=== PATIENT | female | born 1935 | race Caucasian/White ===

== ENCOUNTER 2017-01-02 12:14 | Inpatient (IN) | payer MEDICARE, BC ==
[~2017-01-02] VITALS: Ht 157.5 cm; Wt 97.8 kg
[2017-01-24] MEDS ORDERED: ROSU1TAB8 PO (09:01)
[2017-01-24] MEDS ORDERED: CHOL1CAP34 PO (09:01)
[2017-01-24] MEDS ORDERED: HYDR-3516 PO (09:01)
[2017-01-24] MEDS ORDERED: MULT1TAB46 PO (09:01)
[2017-01-24] MEDS ORDERED: ATEN25TA PO (09:01)
[2017-01-24] MEDS ORDERED: FURO20TA PO (09:01)
[2017-01-24] MEDS ORDERED: ASPI-110 PO (09:01)
[2017-01-24] MEDS ORDERED: HUMU70IN SQ (09:13)
[2017-02-04 08:01] VITALS: BP 151/84; PULSE 60; RESP 20; TEMP 98.2; O2SAT 97
[2017-02-04] MEDS ORDERED: SODIUM CHLORIDE 0.9% IV SCH ×2 (08:30→11:30)
[2017-02-04] MEDS ORDERED: CHLORHEXIDINE GLUCONATE 4% SOLN 120 ML BTL TOPICAL SCH (08:30)
[2017-02-04] MEDS ORDERED: TRANEXAMIC ACID IV SCH ×2 (08:30→11:30)
[2017-02-04] MEDS ORDERED: EXPAREL PERI-ARTICULAR INJECTION (TOTAL VOL. 100 ML) P-ARTICULR SCH ×2 (08:30)
[2017-02-04] MEDS ORDERED: METOPROLOL TARTRATE 25 MG TAB PO PRN (08:45)
[2017-02-04] MEDS ORDERED: POVIDONE IODINE 5% (ANTISEPSIS KIT) 4 APPLICATIONS EACH NARE PRN (08:45)
[2017-02-04] MEDS ORDERED: ceFAZolin 2 GM PREMIX 50 ML IV SCH (08:45)
[2017-02-04] MEDS ORDERED: CHLORHEXIDINE GLUCONATE 2 % 1 PACK (2 CLOTHS) TOPICAL PRN (08:45)
[2017-02-04] MEDS ORDERED: INSULIN HUMAN REGULAR 1,000 UNITS/10 ML VIAL SQ PRN (08:45)
[2017-02-04] MEDS ORDERED: LACTATED RINGER'S 1000 ML IV PRN (08:45)
[2017-02-04] MEDS ORDERED: SODIUM CHLORID 0.9% 500 ML IV PRN (08:45)
[2017-02-04] MEDS ORDERED: GENTAMICIN SULFATE 80 MG/2 ML VIAL ONE (09:43)
[2017-02-04] MEDS ORDERED: fentaNYL CITRATE 250 MCG/5 ML AMP ONE ×2 (10:16→12:32)
[2017-02-04] MEDS ORDERED: MIDAZOLAM HCL 2 MG/2 ML VIAL ONE (10:16)
[2017-02-04] MEDS ORDERED: DEXAMETHASONE SOD PHOS 4 MG/ML VIAL ONE (10:16)
[2017-02-04] MEDS ORDERED: FAMOTIDINE 20 MG/2 ML VIAL ONE (10:16)
[2017-02-04] MEDS ORDERED: ACETAMINOPHEN 1000 MG/100 ML VIAL IV ONE (10:16)
[2017-02-04] MEDS ORDERED: MAGNESIUM HYDROXIDE SUSP 30 ML CUP PO PRN (10:45)
[2017-02-04] MEDS ORDERED: SODIUM CHLORIDE 0.9% FLUSH 5 ML FLUSH IVF PRN (10:45)
[2017-02-04] MEDS ORDERED: ZOLPIDEM TARTRATE 5 MG TAB PO PRN (10:45)
[2017-02-04] MEDS ORDERED: Post-op Orders (for Pharmacy) MISC XX ONE (10:45)
[2017-02-04] MEDS ORDERED: ACETAMINOPHEN/HYDROcodone 325 MG/7.5 MG TAB PO PRN (10:45)
[2017-02-04] MEDS ORDERED: TRANEXAMIC ACID INJ 0 MG in SODIUM CHLORIDE 0.9% INJ 100 ML IV SCH (10:45)
[2017-02-04] MEDS ORDERED: MORPHINE SULFATE 4 MG/ML INJ IV PUSH PRN (10:45)
[2017-02-04] MEDS ORDERED: NEOSTIGMINE 3 MG/3 ML SYR IV ONE (11:45)
[2017-02-04] MEDS ORDERED: ONDANSETRON HCL 4 MG/2 ML VIAL IV PUSH ONE (11:45)
[2017-02-04] MEDS ORDERED: PROPOFOL 200 MG/20 ML AMP IV ONE (11:45)
[2017-02-04] MEDS ORDERED: LACTATED RINGER'S 1000 ML INJ 1,000 ML IV ONE (11:46)
[2017-02-04] MEDS: LACTATED RINGER'S 1000 ML INJ 1,000 ML IV SCH ×2 (13:45→16:38)
[2017-02-04] MEDS ORDERED: *RESP: ALBUTEROL 2.5 MG/3 ML NEB (PRN) PERIprocedural Use ONLY NEB ONE (14:13)
[2017-02-04] MEDS ORDERED: *morphine SULFATE 8 MG/ML PERIprocedure ONLY ONE ×2 (14:27→14:51)
[2017-02-04] MEDS ORDERED: DO NOT ADM ANY ANTICOAGULANT DRUGS PRN (14:30)
--- NOTE | 2017-02-04 14:52 | RADRPT ---
EXAM DATE/TIME: 02/04/2017 13:55 [place] COMPARISON: No previous studies available for comparison. INDICATIONS : Post op right total knee. MEDICAL HISTORY : Unobtainable. SURGICAL HISTORY : Unobtainable. ENCOUNTER: Initial ACUITY: 1 day PAIN SCORE: Non-responsive. LOCATION: Right knee. FINDINGS: The patient is status post right total knee replacement with hardware in good position. CONCLUSION: Status post right total knee replacement with hardware in good position. Denzel Garrett MD on February 04, 2017 at 14:33 Board Certified Radiologist. This report was verified electronically.
[2017-02-04] MEDS: KETOROLAC TROMETHAMINE 30 MG/ML (IVP) VIAL IVP SCH ×2 (15:00→22:09)
[2017-02-04 16:00] VITALS: BP 185/88; PULSE 66; RESP 17; TEMP 97.4; O2SAT 98
[2017-02-04] MEDS ORDERED: CHOLECALCIFEROL (VIT D3) 5000 UNIT CAP PO SCH (16:00)
[2017-02-04] MEDS: ONDANSETRON HCL 4 MG/2 ML VIAL IVP PRN ×2 (16:39→22:11)
[2017-02-04] MEDS: ACETAMINOPHEN/HYDROcodone 325 MG/7.5 MG TAB PO PRN ×2 (16:41→22:09)
[2017-02-04] MEDS: INSULIN HUMAN NPH/R 70/30 1,000 UNITS/10 ML VIAL SQ SCH (19:00)
[2017-02-04 20:50] VITALS: BP 145/73; PULSE 70; RESP 18; TEMP 96.9; O2SAT 96
[2017-02-04] MEDS ORDERED: ASPIRIN EC 81 MG TABEC PO SCH (21:00)
[2017-02-04] MEDS: ATORVASTATIN 40 MG TAB PO SCH (22:10)
[2017-02-04] MEDS: SODIUM CHLORIDE 0.9% FLUSH 5 ML FLUSH IVF SCH (22:10)
[2017-02-05 00:55] VITALS: BP 138/63; PULSE 71; RESP 18; TEMP 97; O2SAT 96
[2017-02-05 04:55] VITALS: BP 135/61; PULSE 74; RESP 18; TEMP 96.6; O2SAT 96
[2017-02-05 05:43] LABS: HEMATOCRIT 34.4 % (35.0-46.0); REVIEW FLAG FINAL
[2017-02-05] MEDS: KETOROLAC TROMETHAMINE 30 MG/ML (IVP) VIAL IVP SCH ×3 (06:34→17:59)
--- NOTE | 2017-02-05 07:44 | PD.ORT.PN ---
Subjective Post Op Day #: 1 Subjective Remarks She is doing well with little pain. She has been up to the [facility]. Range of Motion -22 to 75 degrees. Distance Walked Sat up and dangled. Did not walk. Objective Vitals Vital Signs Date Time Temp Pulse Resp B/P Pulse Ox O2 Delivery O2 Flow Rate FiO2 02/05/17 04:55 96.6 74 18 135/61 96 02/05/17 00:55 97.0 71 18 138/63 96 02/04/17 20:50 96.9 70 18 145/73 96 02/04/17 19:47 Room Air 02/04/17 16:00 97.4 66 17 185/88 98 02/04/17 15:30 97.7 68 16 168/79 97 Nasal Cannula 3 02/04/17 15:00 69 17 157/81 98 Nasal Cannula 3 02/04/17 14:45 68 13 175/87 97 Nasal Cannula 3 02/04/17 14:30 65 16 178/87 97 Nasal Cannula 3 02/04/17 14:15 62 19 169/83 93 Nasal Cannula 3 02/04/17 14:08 Nasal Cannula 3 02/04/17 14:00 63 18 165/83 95 Simple Mask 6 02/04/17 13:45 65 17 159/77 96 Simple Mask 6 02/04/17 13:41 98.4 67 16 161/76 97 Simple Mask 6 02/04/17 08:01 98.2 60 20 151/84 97 I/O 02/04/17 02/04/17 02/04/17 02/05/17 02/05/17 02/05/17 06:59 14:59 22:59 06:59 14:59 22:59 Intake Total 1200 ml 210 ml 947 ml Output Total 250 ml 1040 ml 140 ml Balance 950 ml -830 ml 807 ml Intake Oral 30 ml IV Total 180 ml 947 ml Other 1200 ml Output Urine Total 0 ml 850 ml Drainage Total 190 ml 140 ml Estimated Blood Loss 250 ml Bladder Scan Volume Amount 999 ml Result Diagram: 02/05/17 0530 Imaging Last 24 hours Impressions Knee X-Ray 02/04/17 1036 Signed Impressions: Service Date/Time: Saturday, February 04, 2017 13:55 - CONCLUSION: Status post right total knee replacement with hardware in good position. Denzel Garrett MD Objective Remarks She is resting comfortably, supine in bed in the CPM. The neurovascular status is intact. The dressing is dry and intact. Assessment & Plan Ortho Post Op Day #: 1 Problem List: (1) Status post total right knee replacement Plan: Continue postop care and PT. Assessment and Plan Condition: Good. Orthopaedically stable. DVT prophylaxis: TEDs, sequentials, ASA. Discharge plans: Home with C. Has appointment. Rx: [place] 7.5/325. Amparo Bingham MD (Charles) Feb 05, 2017 07:44
[2017-02-05 08:06] VITALS: BP 131/60; PULSE 73; RESP 18; TEMP 96.6; O2SAT 92
--- NOTE | 2017-02-05 08:27 | HHI.FF ---
Face to Face Verification Diagnosis: (1) Status post total right knee replacement Physical Therapy Knee: Total knee, Protocol: Right, Gait training, Full weight bearing Right LE Weight Bearing: WB as tolerated Right LE Range of Motion: Active ROM (AROM, AAROM, PROM, PRE. ROM goal is 0 to 120 degrees at least. ROM in the OR was 0 to 135 degrees.) Nursing Nursing: Dressing changes Dressing Changes: Daily dressing change, Coverderm/Primapore Additional Instructions Remove steristrips on postop day 14. I have seen patient Mitzi Kaur on 02/05/17. My clinical findings support the need for the requested home health care services because: Ltd mobility - disease progression Limited ability to care for self High risk of falls I certify that my clinical findings support that this patient is homebound because: Post-op weakness Unsteady gait/balance Unsafe to leave home unassisted Amparo Bingham MD (Charles) Feb 05, 2017 08:27
[2017-02-05] MEDS ORDERED: HYDR-3580 PO (08:28)
[2017-02-05] MEDS: SODIUM CHLORIDE 0.9% FLUSH 5 ML FLUSH IVF SCH ×2 (09:00→21:00)
[2017-02-05] MEDS: FUROSEMIDE 20 MG TAB PO SCH (10:08)
[2017-02-05] MEDS: MULTIVITAMIN TAB PO SCH (10:08)
[2017-02-05] MEDS: ATENOLOL 25 MG TAB PO SCH (10:08)
[2017-02-05] MEDS: ACETAMINOPHEN/HYDROcodone 325 MG/7.5 MG TAB PO PRN ×3 (10:08→21:54)
[2017-02-05 11:23] VITALS: BP 107/53; PULSE 81; RESP 18; TEMP 97.5; O2SAT 92
[2017-02-05] MEDS: LACTATED RINGER'S 1000 ML INJ 1,000 ML IV SCH ×2 (11:36→21:56)
--- NOTE | 2017-02-05 11:57 | MB ---
cc: AMARILIS DAVILA MD DATE OF CONSULTATION: 02/05/2017 DATE OF : 1935 TRAVEL IN THE LAST 30 DAYS None. HISTORY OF PRESENT ILLNESS This is a pleasant 81-year-old white female who has been having right knee pain for according to the record approximately 10 months. She has been followed on an outpatient basis and has been participating with outpatient therapy. She is status post a right total knee replacement. The patient is alert, oriented, complaining of no chest pain, no shortness of breath. She has diabetes and hypertension for which she takes medication. PAST MEDICAL HISTORY 1. Osteoarthritis. 2. Hypertension. 3. Diabetes. 4. Asthma. PAST SURGICAL HISTORY 1. Appendectomy. 2. Some type of renal surgery in 1958. 3. Hysterectomy. 4. Cyst removed from the left breast. 5. Cervical spine 2014. 6. Shoulder surgery 2014. 7. Left total knee replacement 2015. ALLERGIES 1. LISINOPRIL. 2. PENICILLIN. 3. SULFA. MEDICATIONS Medications documented: 1. Atenolol. 2. Rosuvastatin. 3. Insulin 70/30. 4. Lasix. 5. Multivitamin. 6. Aspirin. 7. Pain management. 8. Vitamin-D. SOCIAL HISTORY The patient is , currently lives at home with her . She denies any tobacco use. Rare social alcohol. No illicit drugs. FAMILY HISTORY Noted per the record stomach cancer, cardiovascular disease and diabetes. REVIEW OF SYSTEMS A 12-point review of systems review was obtained. Positives are noted in the HPI. Currently the patient is status post right total knee arthroplasty. She is positive for some post-op pain. Other systems are negative or unremarkable. PHYSICAL EXAMINATION VITAL SIGNS: Temperature 96.6, pulse 73, respirations 18, blood pressure 131/60. Initially when returning to her room blood pressure was 185/88 but has come down to normal range through the evening and today. O2 92-98, currently on room air. PHYSICAL EXAMINATION GENERAL: A morbidly obese white female who looks to be her stated age. She is awake, alert, sitting up in a chair. SKIN: Pale, pink, warm and dry. HEENT: Atraumatic, normocephalic. Mucous membranes are pink and moist. NECK: Supple. No scleral icterus. PERRLA. CARDIOVASCULAR: S1, S2, regular rhythm. Distant heart sounds. Minimal lower extremity edema. Extremities are warm to touch. LUNGS: Essentially clear anteriorly and posteriorly with no wheezes, rales or rhonchi. ABDOMEN: Round, soft, obese. Active bowel sounds. EXTREMITIES: Moves her extremities with purpose, overcomes resistance. Her right leg is secured with Antonio bandage wrap and drain. She can wiggle her toes on command. NEUROLOGIC: She is awake, alert, responsive. PSYCHIATRIC: Mood and affect are appropriate. LABORATORY Hemoglobin this a.m. is 11.2, hematocrit 34.4. IMAGING Imaging studies show knee total knee replacement with hardware in good alignment. ASSESSMENT 1. Primary osteoarthritis of the right knee status post right knee replacement. 2. History of hypertension. 3. Diabetes type 2, insulin dependent. 4. Hyperlipidemia. PLAN Our plan is to monitor her medical management. Her post-op care, rehab and pain management will been managed per the orthopedic team. She does have a trapeze set up on her bed to assist with her mobility. We will monitor any labs. Reconcile medications as warranted which has already been completed. The patient is on a bowel regimen with Colace and can receive laxatives p.r.n. Pain management. IV fluids for gentle hydration discontinued this a.m. The patient is up in chair and is planning to go home possibly today with her . Home health and rehab will follow her at home. Will monitor her Accu-Cheks, blood sugars and ADA diet. Thank you very much for this consult. Dictated by: CRISTOFER Murillo MD SHERYL Ontiveros/DENISE /9:49 AM /11:35 AM
[2017-02-05] MEDS: ASPIRIN EC 81 MG TABEC PO SCH ×2 (12:21→21:47)
[2017-02-05 15:52] VITALS: BP 115/54; PULSE 73; RESP 18; TEMP 97.4; O2SAT 92
[2017-02-05] MEDS: INSULIN HUMAN NPH/R 70/30 1,000 UNITS/10 ML VIAL SQ SCH (17:58)
[2017-02-05 20:45] VITALS: BP 112/55; PULSE 72; RESP 17; TEMP 98.9; O2SAT 95
[2017-02-05] MEDS: ATORVASTATIN 40 MG TAB PO SCH (21:47)
[2017-02-05] MEDS: DOCUSATE SODIUM 100 MG CAP PO SCH (21:47)
[2017-02-06 00:05] VITALS: BP 118/56; PULSE 65; RESP 17; TEMP 97; O2SAT 95
[2017-02-06] MEDS: KETOROLAC TROMETHAMINE 30 MG/ML (IVP) VIAL IVP SCH ×2 (00:41→06:52)
[2017-02-06 04:45] VITALS: BP 117/57; PULSE 66; RESP 17; TEMP 97.8; O2SAT 96
--- NOTE | 2017-02-06 06:21 | PD.ORT.PN ---
Subjective Post Op Day #: 2 Subjective Remarks She is doing well with little pain. She has been up to the bathroom. She does not like the CPM. Range of Motion 0-93 degrees. Distance Walked 75 feet with PT. Objective Vitals Vital Signs Date Time Temp Pulse Resp B/P Pulse Ox O2 Delivery O2 Flow Rate FiO2 02/06/17 04:45 97.8 66 17 117/57 96 02/06/17 00:05 97.0 65 17 118/56 95 02/05/17 20:45 98.9 72 17 112/55 95 02/05/17 15:52 97.4 73 18 115/54 92 02/05/17 11:23 97.5 81 18 107/53 92 02/05/17 08:06 96.6 73 18 131/60 92 I/O 02/05/17 02/05/17 02/05/17 02/06/17 02/06/17 02/06/17 07:00 15:00 23:00 07:00 15:00 23:00 Intake Total 1187 ml 720 ml 240 ml Output Total 140 ml 90 ml 0 ml Balance 1047 ml 630 ml 240 ml Intake Oral 240 ml 720 ml 240 ml IV Total 947 ml Drainage Total 140 ml 90 ml 0 ml Bladder Scan Volume Amount 999 ml # Voids 1 2 1 # Bowel Movements 0 0 0 Result Diagram: 02/05/17 0530 Imaging Last 24 hours Impressions Knee X-Ray 02/04/17 1036 Signed Impressions: Service Date/Time: Saturday, February 04, 2017 13:55 - CONCLUSION: Status post right total knee replacement with hardware in good position. Denzel Garrett MD Objective Remarks She is sitting quietly on the side of the bed. The neurovascular status is intact. The dressing is dry and intact. Assessment & Plan Ortho Post Op Day #: 2 Problem List: (1) Status post total right knee replacement Plan: Continue postop care and PT. Assessment and Plan Condition: Good. Orthopaedically stable. DVT prophylaxis: TEDs, sequentials, ASA. Discharge plans: Home with HHC. Has appointment. Rx: [place] 7.5/325. Amparo Bingham MD ([place]) Feb 06, 2017 06:21
[2017-02-06 07:52] VITALS: BP 112/53; PULSE 60; RESP 18; TEMP 97.7; O2SAT 95
[2017-02-06 08:05] LABS: HEMATOCRIT 32.9 % (35.0-46.0); REVIEW FLAG FINAL
[2017-02-06] MEDS: MULTIVITAMIN TAB PO SCH (08:59)
[2017-02-06] MEDS: DOCUSATE SODIUM 100 MG CAP PO SCH (08:59)
[2017-02-06] MEDS: ATENOLOL 25 MG TAB PO SCH (08:59)
[2017-02-06] MEDS: ASPIRIN EC 81 MG TABEC PO SCH (09:00)
[2017-02-06] MEDS: SODIUM CHLORIDE 0.9% FLUSH 5 ML FLUSH IVF SCH (09:00)
[2017-02-06] MEDS: FUROSEMIDE 20 MG TAB PO SCH (09:00)
[2017-02-06] MEDS: ACETAMINOPHEN/HYDROcodone 325 MG/7.5 MG TAB PO PRN (09:52)
--- NOTE | 2017-02-06 11:19 | HHI.PR ---
Subjective Remarks Up in chair, alert oriented talkative Bowel regimen monitored, no BM third day and is passing gas, Dulcolax suppository ordered for discharge Right knee dressing clean dry and intact, 1+ edema generalized postop Objective Objective Results - Vital Signs Date Time Temp Pulse Resp B/P Pulse Ox O2 Delivery O2 Flow Rate FiO2 02/06/17 07:52 97.7 60 18 112/53 95 02/06/17 04:45 97.8 66 17 117/57 96 02/06/17 00:05 97.0 65 17 118/56 95 02/05/17 20:45 98.9 72 17 112/55 95 02/05/17 15:52 97.4 73 18 115/54 92 02/05/17 11:23 97.5 81 18 107/53 92 I/O 02/05/17 02/05/17 02/05/17 02/06/17 02/06/17 02/06/17 06:59 14:59 22:59 06:59 14:59 22:59 Intake Total 1187 ml 720 ml 240 ml 240 ml Output Total 140 ml 90 ml 0 ml 0 ml Balance 1047 ml 630 ml 240 ml 240 ml Intake Oral 240 ml 720 ml 240 ml 240 ml IV Total 947 ml Drainage Total 140 ml 90 ml 0 ml 0 ml Bladder Scan Volume Amount 999 ml # Voids 1 2 1 3 # Bowel Movements 0 0 0 0 Result Diagram: 02/06/17 0721 ROS General: Fatigue, Weakness, Other (mild 10 point ROS done positives noted) GI: BM (constipation mild no BM on third day) Physical Exam Physical Exam PHYSICAL EXAMINATION GENERAL: This is a well-developed, obese elderly female who appears to be in no acute distress. She is alert and awake, HEAD: Normocephalic, atraumatic OROPHARYNGEAL: Oropharynx clear NECK: Supple. Trachea midline without deviation. CARDIAC: Regular rhythm, regular rate, S1 and S2 are heard. LUNGS: Clear to auscultation bilaterally. No cough noted ABDOMEN: Soft, nontender,taut, bowel sounds active, passing gas EXTREMITIES: 1+ right lower extremity edema. Bilateral lower extremities warm NEUROLOGICAL: Patient mood and affect appropriate. No focal deficit SKIN:Warm and moist A/P Assessment and Plan 1. Primary osteoarthritis of the right knee status post right knee replacement. Post op care rehabilitation and pain management per orthopedic team. Has been released for discharge today She is planning on going home with home rehabilitation. Has family at home to assist her 2. History of hypertension. Medical management, normal trends during her hospital stay 3. Diabetes type 2, insulin dependent. Accu-Cheks before meals and at bedtime with sliding scale insulin and ADA diet 4. Hyperlipidemia. Medical management, no acute complaints of chest pain or shortness of breath during her hospital stay 5. Constipation, Monitor bowel regimen throughout hospital stay patient is on third day without BM but is passing gas. Encouraged is to take Dulcolax suppository before discharge so we can assist her if needed Vital signs reviewed, normal trends for now, afebrile Labs reviewed Bowel regimen, no BM times per day, encourage patient to take Dulcolax suppository before discharge Clau Silvestre Feb 06, 2017 11:19
[2017-02-06] MEDS ORDERED: BISACODYL 10 MG SUPP RECTAL ONE (11:30)
[2017-02-06 11:41] VITALS: BP 120/61; PULSE 70; RESP 18; TEMP 97.7; O2SAT 94
--- NOTE | 2017-02-06 14:55 | MP ---
cc: Jhony MCCARTHY. DATE OF SURGERY: 02/04/2017 PREOPERATIVE DIAGNOSIS Primary osteoarthritis, right knee. POSTOPERATIVE DIAGNOSIS Primary osteoarthritis, right knee. OPERATION PERFORMED Right total knee arthroplasty with [place] Triathlon prosthesis (uncemented). SURGEON Amparo Mccarthy MD ANESTHESIA General by LMA with supplemental local. INDICATIONS AND FINDINGS This 81-year-old woman has had right knee pain for over 10 months with progressive worsening in spite of treatment with anti-inflammatory agents, analgesics, activity modification, intraarticular steroids and ambulatory aids. Her ambulation tolerance is very limited. She has medial pain which radiates down the leg and feeling of crepitation in the knee. She uses an electric cart when shopping. Physical findings showed some tenderness throughout the entire range of motion with predominantly medial osteoarthritis and patellofemoral arthritis. Imaging studies including x-rays and an MRI showed loss of articular cartilage in the medial compartment, especially with osteophytes in the medial and patellofemoral compartments. The MRI showed destruction of the articular surface of the medial compartment and the patellofemoral compartment especially. The operative findings showed severe osteoarthritis with eburnation and loss of articular cartilage in the medial compartment to exposed subchondral bone. There was significant irregularity in the patellofemoral compartment as well. There were osteophytes throughout the knee. The prosthesis used was a [place] Triathlon prosthesis. The femur is a size 5 right cruciate-retaining Press-Fit. The tibia is a tritanium baseplate size 6 with a 9 mm spacer. The patella as a size 35 asymmetric. PROCEDURE The patient was brought to the clean-air operating suite and a general anesthetic was administered. She received Ancef and tranexamic acid according to protocol. The patient also had an adductor canal block carried out preoperatively. She was placed in a supine position on the operating table with a small bolster under the hip. The pneumatic tourniquet was applied to the right thigh. The limb was then prepped with alcohol, Hibiclens and ChloraPrep and draped in the usual manner with the knee draped free. An appropriate timeout procedure was carried out. An anterior incision was made from about three fingerbreadths above the superior medial pole of the patella down to the tibial tubercle. The incision was deepened through subcutaneous tissues and the retinacular structures which were exposed medially and laterally. A medial retinacular incision was made from the superior medial pole of the patella down to the tibial tubercle and up to the quadriceps tendon splitting it longitudinally in the medial one-third. The patella was reflected. The infrapatellar fat pad was debulked. Medial and lateral dissection was carried out. The posterior surface of the patella was excised using the oscillating saw. A patellar protector was applied to the posterior surface. Drill holes for the intermedullary referencing guides were placed in the femur and tibia in appropriate position. The distal femoral cutting guide and jig were assembled for a 5 degree, 8 mm cut. The cutting block was stabilized with pins. The jig was removed. The distal femoral cut was completed with the oscillating saw. The sizing guide was positioned in place. The appropriate size was determined to be a size 5. The four-in-one cutting block was then positioned in place and stabilized with pins. Anterior and posterior cuts were made followed by posterior and anterior chamfer cuts. Osteophytes were trimmed about the knee. Attention was directed to the tibia. Medial and lateral meniscectomies were initiated and partially completed. The anterior cruciate ligament had been excised. The proximal tibial cutting guide and jig were assembled and positioned appropriately for rotation. This was pinned. The depth of the cut was then verified with a stylus off the lateral tibial plateau. This cutting block was stabilized with pins. The jig was removed. The depth of cut was verified and adjusted with a spacer block. The proximal tibial cut was then completed with the oscillating saw taking care to prevent injury to neurovascular and ligamentous structures. The spacer block was then used to determine if this was an appropriate cut. Osteophytes were trimmed from the posterior aspect of the femur. Meniscectomies were completed. The tibial baseplate trial was positioned in place and appeared to be appropriate for a size 6. The trial with the spacer was inserted. The femoral component was inserted. The tibia was pinned in the appropriate position. The patella drill holes were made for the 35 mm patella. The patella trial was positioned in place. The knee was taken through a range of motion which was easily 0 degrees extension to 120 degrees of flexion by gravity and went to 135 degrees with an easy push. Femoral drill holes were made. The patella and femoral trials were removed. The tibial spacer was removed. Bone plugs were placed in the distal femur and proximal tibia. The tibia was punched through its guide and then removed. The tibial drill guide was positioned in place and drill holes made. Local anesthesia was administered throughout the knee with Exparel. The tibial baseplate was impacted into place and seated appropriately. The spacer was inserted and seated appropriately. The femoral component was seated and impacted in place. The patella button was positioned in place and seated appropriately. This was done with the patella vise. Drains were brought out the superior and lateral aspect of the suprapatellar pouch. The remainder of the Exparel was injected throughout the knee. Wound closure then commenced with 0 Vicryl interrupted [id number] sutures for the retinacular structures and capsular structures, 2-0 Vicryl interrupted simple sutures with buried knots for the subcutaneous tissues and 4-0 Monocryl continuous subcuticular closure for the skin. The wound was dressed with Steri-Strips followed by dry dressing, sterile Sof-Rol, cooling pad, further sterile Sof-Rol and Antonio bandage from the base of the toes to midthigh. The patient was transferred from the operating room to the recovery room in satisfactory condition having tolerated the procedure well. Counts were correct. Specimens none. Estimated blood loss 300 mL. MD RENEE Bishop/DENISE /1:45 PM /2:39 PM
== END 2017-02-06 12:54 | disposition home health service (06) | DRG 470 ==
LOC: HSDI 02-04 07:17 → N06A 02-04 15:56
PROVIDERS: ADMIT Orthopaedic Surgery; ATTEND Orthopaedic Surgery
PROC: 3E0T3CZ (ICD-10-PCS; 2017-02-04)
PROC: 0SRC0JA Replacement of Right Knee Joint with Synthetic Substitute, Uncemented, Open Approach (ICD-10-PCS; principal; 2017-02-04 10:39)
DX: M17.11 Unilateral primary osteoarthritis, right knee (principal); E11.9 Type 2 diabetes mellitus without complications; I10 Essential (primary) hypertension; Z79.4 Long term (current) use of insulin; E78.5 Hyperlipidemia, unspecified; J45.909 Unspecified asthma, uncomplicated; K59.00 Constipation, unspecified; Z96.652 Presence of left artificial knee joint
CPT/HCPCS: 73560; 82948; 85014; 85018; 86850; 86900; 86901; 94150; 94664; C1776; C9290; J0131; J0690; J1100; J1580; J1815; J1885; J2250; J2270; J2405; J2710; J3010; J7120; J7613

== ENCOUNTER → 2017-01-24 | Outpatient (CLI) | payer MEDICARE, BC ==
[~2017-01-24] MED LIST: ASPI-110 PO; ATEN25TA PO; CHOL1CAP34 PO; FURO20TA PO; HUMU70IN SQ; HYDR-3516 PO; HYDR-3580 PO; MULT1TAB46 PO; ROSU1TAB8 PO
[2017-01-24 08:45] LABS: HEMATOCRIT 41.4 % (35.0-46.0); MEAN CELL VOLUME 86.5 FL (80.0-100.0); MEAN CORPUSCULAR HEMOGLOBIN 28.2 PG (27.0-34.0); MEAN CORPUSCULAR HGB CONC 32.6 % (32.0-36.0); PLATELET COUNT 257 TH/MM3 (150-450); RED BLOOD COUNT 4.78 MIL/MM3 (4.00-5.30); RED CELL DISTRIBUTION WIDTH 13.7 % (11.6-17.2); REVIEW FLAG FINAL; WHITE BLOOD COUNT 6.8 TH/MM3 (4.0-11.0)
[2017-01-24 08:57] LABS: APTT (PATIENT) 28.2 SEC (24.3-30.1); PROTHROMBIN TIME - PATIENT 10.5 SEC (9.8-11.6)
[2017-01-24 09:15] LABS: BICARBONATE 27.7 MEQ/L (21.0-32.0); POTASSIUM 4.2 MEQ/L (3.5-5.1)
[2017-01-24 09:21] LABS: BLOOD, URINE MOD (NEG); GLUCOSE,URINE NEG (NEG); KETONE, URINE NEG (NEG); MUCUS URINE FEW /lpf (OCC); NITRITE,URINE NEG (NEG); PH, URINE 5.5 (5.0-8.5); SQUAMOUS EPITHELIAL CELL URINE <1 /hpf (0-5); URINE COLOR YELLOW (YELLW/STRAW)
[2017-01-24 09:22] LABS: COMMENT (UR) CATH-CULT NOT IND; CULTURE IF INDICATED CATH CULTURE NOT IND
--- NOTE | 2017-01-25 10:44 | EKG ---
Date Performed: 01/24/2017 Time Performed: 08:24:51 PTAGE: 81 years EKG: SINUS BRADYCARDIA WITH MARKED SINUS ARRHYTHMIA INCOMPLETE RIGHT BUNDLE BRANCH BLOCK BORDERL INE ECG NO PREVIOUS TRACING DOCTOR: Bob Mcconnell Interpretating Date/Time 01/25/2017 10:42:08
== END ==
LOC: CPRE 07:55
PROVIDERS: ATTEND Orthopaedic Surgery
DX: Z01.810 Encounter for preprocedural cardiovascular examination (principal); Z01.812 Encounter for preprocedural laboratory examination; M79.609 Pain in unspecified limb; I10 Essential (primary) hypertension; R94.31 Abnormal electrocardiogram [ECG] [EKG]
CPT/HCPCS: 36415; 80048; 81001; 85027; 85610; 85730; 93005

== ENCOUNTER 2017-03-04 04:20 | Inpatient (IN) | payer MEDICARE, BC ==
[~2017-03-04] VITALS: Ht 157.5 cm; Wt 88.1 kg
[2017-03-04] VITALS (9 sets, daily range): BP systolic 105–142; BP diastolic 55–71; PULSE 68–94; RESP 18–20; TEMP 96.6–98.2; O2SAT 95–99
[~2017-03-04 04:20] MED LIST changes: +NALOXONE HCL 0.4 MG/ML AMP IV PRN; +ONDANSETRON HCL 4 MG/2 ML VIAL IVP PRN; +SODIUM CHLOR 0.9% 1000 ML INJ 1,000 ML IV SCH; +SODIUM CHLORIDE 0.9% FLUSH 10 ML FLUSH IV FLUSH PRN
[2017-03-04] MEDS ORDERED: DEXT 5%-NACL 0.45% 1000 ML INJ 1,000 ML IV SCH (07:15)
[2017-03-04] MEDS ORDERED: GLUCAGON 1 MG/ML VIAL OTHER PRN (07:15)
[2017-03-04] MEDS ORDERED: DEXTROSE 50% IN WATER 50 ML VIAL(D50) IV PUSH PRN (07:15)
[2017-03-04] MEDS: MEDIUM DOSE INSULIN NOVOLOG SUPPLEMENTAL SCALE SQ SCH ×3 (08:00→22:13)
[2017-03-04] MEDS: SODIUM CHLORIDE 0.9% FLUSH 10 ML FLUSH IV FLUSH SCH ×2 (09:00→22:01)
[2017-03-04] MEDS: FUROSEMIDE 20 MG TAB PO SCH (09:28)
[2017-03-04] MEDS: ATENOLOL 25 MG TAB PO SCH (09:28)
--- NOTE | 2017-03-04 11:38 | HHI.HP ---
[facility] Primary [facility] Physician Raymundo Das M.D. Admission Diagnosis Diagnoses: Chief Complaint: rectal bleeding Travel History International Travel<30 Days: No Contact w/Intl Traveler <30 Da: No Traveled to Known Affected Are: No History of Present Illness This a pleasant 81-year-old elderly white female with significant past medical history diabetes, osteoarthritis, hypertension. Patient had a recent right total knee arthroplasty February 04, 2017. She had an uneventful postoperative course. She went home on aspirin which she finished on Friday. She presented to the emergency room complaining of rectal bleeding that started last night. Indicates that she noted blood on her underpants and by the time she got to the toilet she noticed blood clots in the toilet bowl. She denies any abdominal pain, no nausea, no vomiting, no heartburn. She's had previous upper and lower endoscopies but is unable to recall results. She was actually due to have colonoscopy but it was put on hold as she was scheduled to have surgery. She does have prior history of hemorrhoids. She does not take any other anticoagulation. Denies any alcohol abuse. Did have some problem with constipation after surgery but this has resolved. Appetite has been fair. Denies any recent weight loss. No recent fever, no chills. Has been tolerating physical therapy well and was only using a cane. Patient presented to the emergency room for further evaluation. Initial laboratory workup completed in the emergency room showed H&H that was stable. Mild renal insufficiency. Blood glucose elevated. Abdomen CT noted with diverticulosis, no diverticulitis. Also fatty liver. Patient just went to the bathroom and had another episode of rectal bleeding, a large amount was noted. Prior to this episode, patient endorsed some chest pressure, this happened while she was dozing off. No other symptoms such as shortness of breath, no diaphoresis, no radiation of pain. Denies any history of coronary disease. Indicates that the pain was relieved by belching and she did have Tums. Patient is admitted for further evaluation and treatment. Review of Systems Constitutional: DENIES: Diaphoretic episodes, Fatigue, Fever, Weight gain, Weight loss, Chills, Dizziness, Change in appetite, Night Sweats Endocrine: DENIES: Abnorml menstrual pattern, Heat/cold intolerance, Polydipsia , Polyuria, Polyphagia Eyes: DENIES: Blurred vision, Diplopia, Eye inflammation, Eye pain, Vision loss , Photosensitivity, Double Vision Ears, nose, mouth, throat: DENIES: Tinnitus, Hearing loss, Vertigo, Nasal discharge, Oral lesions, Throat pain, Hoarseness, Ear Pain, Running Nose, Epistaxis, Sinus Pain, Toothache, Odynophagia Respiratory: DENIES: Apneas, Cough, Snoring, Wheezing, Hemoptysis, Sputum production, Shortness of breath Cardiovascular: DENIES: Chest pain, Palpitations, Syncope, Dyspnea on Exertion , PND, Lower Extremity Edema, Orthopnea, Claudication Gastrointestinal: COMPLAINS OF: Bloody stools, Constipation (after surgery, which resolved ), DENIES: Abdominal pain, Black stools, Diarrhea, Nausea, Vomiting, Difficulty Swallowing, Anorexia Genitourinary: DENIES: Abnormal vaginal bleeding, Dysmenorrhea, Dyspareunia, Sexual dysfunction, Urinary frequency, Urinary incontinence, Urgency, Hematuria , Dysuria, Nocturia, Vaginal discharge Musculoskeletal: COMPLAINS OF: Joint pain (right knee, improved, had surgery ) Integumentary: DENIES: Abnormal pigmentation, Pruritus, Rash, Nail changes, Breast masses, Breast skin changes, Nipple discharge Hematologic/lymphatic: DENIES: Bruising, Lymphadenopathy Immunologic/allergic: DENIES: Eczema, Urticaria Neurologic: DENIES: Abnormal gait, Headache, Localized weakness, Paresthesias, Seizures, Speech Problems, Tremor, Poor Balance Psychiatric: DENIES: Anxiety, Confusion, Mood changes, Depression, Hallucinations, Agitation, Suicidal Ideation, Homicidal Ideation, Delusions Past Family Social History Past Medical History 1. Osteoarthritis. 2. Hypertension. 3. Diabetes. 4. Asthma. Past Surgical History 1. Appendectomy. 2. Some type of renal surgery in 1959. 3. Hysterectomy. 4. Cyst removed from the left breast. 5. Cervical spine 2014. 6. Shoulder surgery 2014. 7. Left total knee replacement 2015. 8. S/P right TKR February 04, 2017 Reported Medications Reported Meds & Active Scripts Active Hydrocodone-Acetaminophen 7.5-325 mg Tab 1 Tab PO Q4H PRN Reported Humulin 70-30 Inj (Insulin NPH Isophane-Reg (Human) 70-30 Inj) 1,000 Unit/10 Ml Vial 40 Unit SQ 1900 Multi Vitamin Daily (Multiple Vitamin) 1 Tab Tab 1 Tab PO DAILY Aspirin 81 (Aspirin) 81 Mg Tabdr 81 Mg PO DAILY Furosemide 20 Mg Tab 20 Mg PO DAILY Vitamin D3 (Cholecalciferol) 50,000 Unit Cap 50,000 Units PO Q7D Hydrocodone-Acetaminophen 5-325 mg Tab 1 Tab PO Q6H PRN Rosuvastatin (Rosuvastatin Calcium) 20 Mg Tab 20 Mg PO HS Atenolol 25 Mg Tab 25 Mg PO DAILY Allergies: Coded Allergies: Sulfa (Sulfonamide Antibiotics) (Unverified Allergy, Severe, BLACK AND BLUE ALL OVER BODY, 02/25/17) lisinopril (Unverified Allergy, Severe, ANAPHYLACTIC, 02/25/17) penicillin G (Unverified Allergy, Severe, SORES TONGUE AND HEAD, 02/25/17) Active Ordered Medications Inpatient Medications Acetaminophen (Tylenol) 650 mg Q4H PRN PO TEMP > 100.4 Last administered on 16:21; Start 03/04/17 at 03:15 Atenolol (Tenormin) 25 mg DAILY PO Last administered on 03/04/17 09:28; Start 03/04/17 at 09:00 Dextrose (D50w (Vial) Inj) 50 ml UNSCH PRN IV PUSH HYPOGLYCEMIA - SEE COMMENTS ; Start 03/04/17 at 07:15 Dextrose/Sodium Chloride 1,000 ml @ 50 mls/hr Q20H IV Last administered on 09:37; Start 03/04/17 at 07:15 Famotidine (Pepcid) 20 mg BID PO ; Start 03/04/17 at 21:00 Furosemide (Lasix) 20 mg DAILY PO Last administered on 03/04/17 09:28; Start 03/04/17 at 09:00 Glucagon (Glucagon Inj) 1 mg UNSCH PRN OTHER HYPOGLYCEMIA-SEE COMMENTS; Start 03/04/17 at 07:15 Insulin Aspart (NovoLOG SUPPLEMENTAL SCALE) 1 Q6H SQ Last administered on 14:55; Start 03/04/17 at 08:00 Naloxone HCl (Narcan Inj) 0.4 mg UNSCH PRN IV SEE LABEL COMMENTS; Start at 03:15 Ondansetron HCl (Zofran Inj) 4 mg Q6H PRN IVP NAUSEA OR VOMITING; Start at 03:15 Polyethylene Glycol/ Electrolytes (Colyte Liq) 4,000 ml ONCE ONCE PO Last administered on 03/04/17t 16:22; Start 03/04/17 at 16:00; Stop 03/04/17 at 16:01 ; Status DC Sodium Chloride (NS Flush) 2 ml BID IV FLUSH ; Start 03/04/17 at 09:00 Family History Father with stomach cancer Mother with CAD, DM Social History The patient is , currently lives at home with her . She denies any tobacco use. Rare social alcohol. No illicit drugs. Physical Exam Vital Signs Vital Signs Date Time Temp Pulse Resp B/P (MAP) Pulse Ox O2 Delivery O2 Flow Rate FiO2 03/04/17 10:58 98 21 03/04/17 10:12 142/63 (89) 03/04/17 08:00 98.1 72 20 126/60 (82) 96 03/04/17 04:00 98.1 68 18 129/58 (81) 96 Physical Exam GENERAL: This is a well-nourished, well-developed patient, in no apparent distress. SKIN: No rashes, ecchymoses or lesions. Cool and dry. HEAD: Atraumatic. Normocephalic. No temporal or scalp tenderness. EYES: Pupils equal round and reactive. Extraocular motions intact. No scleral icterus. No injection or drainage. ENT: Nose without bleeding, purulent drainage or septal hematoma. Throat without erythema, tonsillar hypertrophy or exudate. Uvula midline. Airway patent. NECK: Trachea midline. No JVD or lymphadenopathy. Supple, nontender, no meningeal signs. CARDIOVASCULAR: Regular rate and rhythm without murmurs, gallops, or rubs. RESPIRATORY: Clear to auscultation. Breath sounds equal bilaterally. No wheezes , rales, or rhonchi. GASTROINTESTINAL: Abdomen soft, non-tender, nondistended. No hepato-splenomegaly , or palpable masses. No guarding. MUSCULOSKELETAL: Right knee incision intact, mild right leg swelling. No other joint abnormality. Pedal pulses 2+ bilat NEUROLOGICAL: Awake and alert. Cranial nerves II through XII intact. Motor and sensory grossly within normal limits. Five out of 5 muscle strength in all muscle groups. Normal speech. Caprini VTE Risk Assessment Caprini VTE Risk Assessment: No/Low Risk (score <= 1) VTE Pharm Contraindication: Active bleeding Caprini Risk Assessment Model Point Value = 1 Point Value = 2 Point Value = 3 Point Value = 5 Age 41-60 Minor surgery BMI > 25 kg/m2 Swollen legs Varicose veins or History of unexplained or recurrent spontaneous Oral contraceptives or hormone replacement Sepsis (< 1 month) Serious lung disease, including pneumonia (< 1 month) Abnormal pulmonary function Acute myocardial infarction Congestive heart failure (< 1 month) History of inflammatory bowel disease Medical patient at bed rest Age 61-74 Arthroscopic surgery Major open surgery (> 45 min) Laparoscopic surgery (> 45 min) Malignancy Confined to bed (> 72 hours) Immobilizing plaster cast Central venous access Age >= 75 History of VTE Family history of VTE Factor V Leiden Prothrombin [id number] Lupus anticoagulant Anticardiolipin antibodies Elevated serum homocysteine Heparin-induced thrombocytopenia Other congenital or acquired thrombophilia Stroke (< 1 month) Elective arthroplasty Hip, pelvis, or leg fracture Acute spinal cord injury (< 1 month) Prophylaxis Regimen Total Risk Factor Score Risk Level Prophylaxis Regimen 0-1 Low Early ambulation 2 Moderate Order ONE of the following: *Sequential Compression Device (SCD) *Heparin 5000 units SQ BID 3-4 Higher Order ONE of the following medications: *Heparin 5000 units SQ TID *Enoxaparin/Lovenox 40 mg SQ daily (WT < 150 kg, CrCl > 30 mL/min) *Enoxaparin/Lovenox 30 mg SQ daily (WT < 150 kg, CrCl > 10-29 mL/min) *Enoxaparin/Lovenox 30 mg SQ BID (WT < 150 kg, CrCl > 30 mL/min) AND/OR *Sequential Compression Device (SCD) 5 or more Highest Order ONE of the following medications: *Heparin 5000 units SQ TID (Preferred with Epidurals) *Enoxaparin/Lovenox 40 mg SQ daily (WT < 150 kg, CrCl > 30 mL/min) *Enoxaparin/Lovenox 30 mg SQ daily (WT < 150 kg, CrCl > 10-29 mL/min) *Enoxaparin/Lovenox 30 mg SQ BID (WT < 150 kg, CrCl > 30 mL/min) AND *Sequential Compression Device (SCD) Assessment and Plan Problem List: (1) Rectal bleeding ICD Codes: K62.5 - Hemorrhage of anus and rectum Status: Acute (2) Status post total right knee replacement ICD Codes: Z96.651 - Presence of right artificial knee joint Status: Resolved (3) HTN (hypertension) ICD Codes: I10 - Essential (primary) hypertension Status: Chronic (4) DM (diabetes mellitus) ICD Codes: E11.9 - Type 2 diabetes mellitus without complications Status: Chronic (5) Asthma ICD Codes: J45.909 - Unspecified asthma, uncomplicated Status: Chronic (6) Primary osteoarthritis of right knee ICD Codes: M17.11 - Unilateral primary osteoarthritis, right knee Status: Chronic (7) Renal insufficiency ICD Codes: N28.9 - Disorder of kidney and ureter, unspecified Status: Acute Assessment and Plan Admit to Dr. Moe 81-year-old elderly white female presented with complaint of rectal bleeding, had recent right total knee and was on aspirin. Rectal bleeding -stat H&H, continue with serial H&H's. May need PRBC transfusion -Consult GI for evaluation -Continue with IV fluids -No anticoagulation, no aspirin at this time Renal insufficiency -Continue with cautious hydration -BMP in the morning Recent right total knee replacement -Continue with physical therapy Type 2 diabetes -Accu-Cheks before meals and at bedtime with insulin therapy as needed Hypertension, stable -Continue with home medications Home medications reviewed, initiated as indicated SCDs for DVT prophylaxis Plan of care has been discussed with the patient, attending and registered nurse. Further management of the patient will be dependent on the hospital course This patient was seen by myself and Dr. Moe, this H&P is written on his behalf Problem Qualifiers (1) DM (diabetes mellitus): Qualified Codes: E11.9 - Type 2 diabetes mellitus without complications (2) Asthma: Qualified Codes: J45.909 - Unspecified asthma, uncomplicated Constance Florian Mar 04, 2017 11:38
--- NOTE | 2017-03-04 11:55 | HHI.FF ---
Face to Face Verification Diagnosis: (1) Primary osteoarthritis of right knee (2) Status post total right knee replacement Physical Therapy Order: Evaluate and Treat Home Health Nursing Order: Medical education Nursing assessment with vital signs I have seen patient Mitzi Kaur on 03/04/17. My clinical findings support the need for the requested home health care services because: Deconditioned w/ increased weakness Limited ability to care for self High risk of falls I certify that my clinical findings support that this patient is homebound because: Post-op weakness Constance Florian CHILD MONITOR Mar 04, 2017 11:55
[2017-03-04] MEDS ORDERED: PROPOFOL 200 MG/20 ML AMP IV PUSH ONE (13:35)
--- NOTE | 2017-03-04 14:22 | PD.CONS ---
HPI History of Present Illness This is a 81 year old female with hx DM who presented after BRBPR with clots last night. She had the urge to defecate and was ambulating with her walker to bathroom and felt something wet seeping out of her and saw blood. When she sat down on the toilet more blood came from her rectum, independent of stool. Pt reports continued episodes of rectal bleeding independent of stool. Per RN there has been some stool with the blood. She had her right knee replaced and was constipated from the pain meds, has been taking ASA which she last had 2d ago. No prior hx GIB. She had [id number] ago in [place] and was told she had polyps. She has had an EGD that was normal but cannot recall when. Denies abd pain, n/v, weight loss. CT showed diverticulosis w/o evidence diverticulitis, fatty liver. (Earlene Colbert) PFSH Past Medical History DM HTN HLD asthma Past Surgical History right knee replacement (Earlene Colbert) Coded Allergies: Sulfa (Sulfonamide Antibiotics) (Unverified Allergy, Severe, BLACK AND BLUE ALL OVER BODY, 02/25/17) lisinopril (Unverified Allergy, Severe, ANAPHYLACTIC, 02/25/17) penicillin G (Unverified Allergy, Severe, SORES TONGUE AND HEAD, 02/25/17) Family History ID, CHF - mother gastric ca - father Social History no toxic habits (Earlene Colbert) Review of Systems Constitutional: DENIES: Fever Eyes: DENIES: Blurred vision Ears, nose, mouth, throat: DENIES: Hearing loss Respiratory: DENIES: Hemoptysis Cardiovascular: DENIES: Chest pain Gastrointestinal: COMPLAINS OF: Constipation, DENIES: Abdominal pain, Black stools, Bloody stools, Diarrhea, Nausea, Vomiting, Hematemesis Genitourinary: DENIES: Hematuria Musculoskeletal: DENIES: Muscle aches Neurologic: COMPLAINS OF: Abnormal gait (ambulates with walker) Psychiatric: COMPLAINS OF: Confusion (Earlene Colbert) GI Exam Vitals I&O Vital Signs Date Time Temp Pulse Resp B/P (MAP) Pulse Ox O2 Delivery O2 Flow Rate FiO2 03/04/17 12:00 96.6 71 20 142/63 (89) 97 8/22/17 11:00 97.0 78 18 140/71 (94) 99 03/04/17 10:58 98 21 03/04/17 10:12 142/63 (89) 03/04/17 08:00 98.1 72 20 126/60 (82) 96 03/04/17 04:00 98.1 68 18 129/58 (81) 96 I/O 03/03/17 03/03/17 03/03/17 03/04/17 03/04/17 03/04/17 07:00 15:00 23:00 07:00 15:00 23:00 Intake Total 240 ml 525 ml Balance 240 ml 525 ml Intake Oral 240 ml IV Total 525 ml # Voids 2 # Bowel Movements 2 Physical Examination HEENT: PERRL; normocephalic; atraumatic; no jaundice. CHEST: CTA CARDIAC: RRR ABDOMEN: Soft, nondistended, nontender; no hepatosplenomegaly; bowel sounds are present in all four quadrants. EXTREMITIES: No clubbing, cyanosis, or edema. SKIN: Normal; no rash; no jaundice. GAS REVERSER: No focal deficits; alert and oriented times three. (Earlene Colbert) Assessment and Plan Plan ASSESSMENT - rectal bleeding - could be diverticular bleed. episode rectal bleeding with clots, continued episodes BRBPR. HH WNL, repeat HH pending. no hx GIB. last colonoscopy 3y ago and polyps found. was on ASA following knee surgery, last had [address] shows diverticulosis w/o evidence diverticulitis. denies pain. PLAN - colonoscopy tomorrow - GoLytely - obtain consent - clears for now - NPO after midnight - monitor HH - transfuse if needed - if active bleeding stat bleed scan - further recs to follow This pt seen by myself and Dr Rosa and this note is written on his behalf (Earlene Colbert) Physician Comments Seen and examined, plan as above. Further recommendations pending colonoscopy findings. (Russell Rosa MD) Earlene Colbert Mar 04, 2017 14:22 Russell Rosa MD Mar 05, 2017 11:37
[2017-03-04] MEDS ORDERED: PEG (High)/E-LYTE SOLN 4000 ML BTL PO ONE (16:00)
[2017-03-04] MEDS: ACETAMINOPHEN 325 MG TAB PO PRN (16:21)
[2017-03-04 16:28] LABS: HEMATOCRIT 27.4 % (35.0-46.0); REVIEW FLAG FINAL
--- NOTE | 2017-03-04 18:28 | HHI.PR ---
Objective Objective Results - Vital Signs Date Time Temp Pulse Resp B/P (MAP) Pulse Ox O2 Delivery O2 Flow Rate FiO2 03/04/17 16:00 96.7 80 18 117/66 (83) 98 03/04/17 12:00 96.6 71 20 142/63 (89) 97 03/04/17 11:00 97.0 78 18 140/71 (94) 99 03/04/17 10:58 98 21 03/04/17 10:12 142/63 (89) 03/04/17 08:00 98.1 72 20 126/60 (82) 96 03/04/17 04:00 98.1 68 18 129/58 (81) 96 I/O 03/03/17 03/03/17 03/03/17 03/04/17 03/04/17 03/04/17 07:00 15:00 23:00 07:00 15:00 23:00 Intake Total 240 ml 525 ml Balance 240 ml 525 ml Intake Oral 240 ml IV Total 525 ml # Voids 2 # Bowel Movements 2 Result Diagram: 03/04/17 1515 Other Results Laboratory Tests Test 03/04/17 15:15 Hemoglobin 8.9 Hematocrit 27.4 Troponin I LESS THAN 0.02 Physical Exam Physical Exam pt was seen & examined d/w PT & her at bedside d/w RN see Orders d/w Debbie GI input appreciated for Cscope in am see H&P by debbie stark f/u Avelina Moe MD Mar 04, 2017 18:28
[2017-03-04] MEDS ORDERED: RESP: ALBUTEROL 2.5 MG/IPRATROPIUM 0.5 MG NEB (PRN) NEB (18:45)
[2017-03-04 20:48] LABS: HEMATOCRIT 26.6 % (35.0-46.0); REVIEW FLAG FINAL
[2017-03-04] MEDS: FAMOTIDINE 20 MG TAB PO SCH (22:01)
[2017-03-05] MEDS: ACETAMINOPHEN 325 MG TAB PO PRN (01:40)
[2017-03-05] MEDS ORDERED: METOPROLOL TARTRATE 25 MG TAB PO PRN (04:30)
[2017-03-05] MEDS ORDERED: CHLORHEXIDINE GLUCONATE 2 % 1 PACK (2 CLOTHS) TOPICAL PRN (04:30)
[2017-03-05] MEDS ORDERED: POVIDONE IODINE 5% (ANTISEPSIS KIT) 4 APPLICATIONS EACH NARE PRN (04:30)
[2017-03-05] MEDS ORDERED: SODIUM CHLORID 0.9% 500 ML IV PRN (04:30)
[2017-03-05] MEDS ORDERED: LACTATED RINGER'S 1000 ML IV PRN (04:30)
[2017-03-05 04:40] VITALS: BP 125/95; PULSE 103; RESP 18; TEMP 98.2; O2SAT 95
[2017-03-05] MEDS: MEDIUM DOSE INSULIN NOVOLOG SUPPLEMENTAL SCALE SQ SCH ×4 (04:41→20:00)
[2017-03-05 08:00] VITALS: BP 129/60; PULSE 98; RESP 17; TEMP 98.8; O2SAT 97
[2017-03-05 08:15] LABS: AUTOMATED NEUTROPHIL # 5.3 TH/MM3 (1.8-7.7); BASOPHIL # 0.1 TH/MM3 (0-0.2); BASOPHIL % 0.7 % (0.0-2.0); EOSINOPHIL # 0.1 TH/MM3 (0-0.4); HEMATOCRIT 23.2 % (35.0-46.0); HEMO FLAGS DIFF FINAL; LYMPH % 24.4 % (9.0-44.0); LYMPHOCYTE # 1.9 TH/MM3 (1.0-4.8); MEAN CELL VOLUME 87.4 FL (80.0-100.0); MEAN CORPUSCULAR HEMOGLOBIN 28.1 PG (27.0-34.0); MEAN CORPUSCULAR HGB CONC 32.2 % (32.0-36.0); MONO % 6.7 % (0.0-8.0); NEUT % 67.2 % (16.0-70.0); PLATELET COUNT 181 TH/MM3 (150-450); RED BLOOD COUNT 2.65 MIL/MM3 (4.00-5.30); RED CELL DISTRIBUTION WIDTH 14.9 % (11.6-17.2); WHITE BLOOD COUNT 7.9 TH/MM3 (4.0-11.0)
[2017-03-05] MEDS: ATENOLOL 25 MG TAB PO SCH (08:38)
[2017-03-05] MEDS: FAMOTIDINE 20 MG TAB PO SCH ×2 (08:38→21:54)
[2017-03-05] MEDS: SODIUM CHLORIDE 0.9% FLUSH 10 ML FLUSH IV FLUSH SCH ×2 (08:39→21:00)
[2017-03-05] MEDS: FUROSEMIDE 20 MG TAB PO SCH (08:39)
[2017-03-05 09:27] LABS: BICARBONATE 23.9 MEQ/L (21.0-32.0); POTASSIUM 3.8 MEQ/L (3.5-5.1)
[2017-03-05] MEDS ORDERED: MIDAZOLAM HCL 2 MG/2 ML VIAL ONE (13:41)
--- NOTE | 2017-03-05 13:42 | GIPROC ---
[facility] [address] [facility]. [facility], [address] COLONOSCOPY PROCEDURE REPORT EXAM DATE: 03/05/2017 PATIENT NAME: Mitzi Kaur MR #: [id number] BIRTHDATE: 1935 ENDOSCOPIST: Russell Rosa MD ORDER #: [id number] BAKER CHEF: Julia Bustillos and Shantanu Trammell STATUS: inpatient INDICATIONS: The patient is a 81 yr old female here for a colonoscopy due to hematochezia PROCEDURE PERFORMED: Colonoscopy, diagnostic MEDICATIONS: None and Per Anesthesia. PREP QUALITY: good PREP TYPE:GoLytely ESTIMATED BLOOD LOSS: None CONSENT: The patient understands the risks and benefits of the procedure and understands that these risks include, but are not limited to: sedation, allergic reaction, infection, perforation and/or bleeding. Alternative means of evaluation and treatment include, among others: physical exam, x-rays, and/or surgical intervention. The patient elects to proceed with this endoscopic procedure. medical equipment was checked for proper function. Hand hygiene and appropriate measures for infection prevention was taken. After the risks, benefits and alternatives of the procedure were thoroughly explained, Informed consent was verified, confirmed and timeout was successfully executed by the treatment team. A digital exam revealed no abnormalities of the rectum The Pentax [id number] endoscope was introduced through the anus and advanced to the cecum, which was identified by both the appendix and ileocecal valve. The instrument was then slowly withdrawn as the colon was fully examined. COLON FINDINGS: Diverticulum was found in the sigmoid colon and descending colon with associated colonic spasm. The opening was large. A small amount of fresh blood was found in the sigmoid colon. Retroflexed views revealed no abnormalities The scope was then completely withdrawn from the patient and the procedure terminated. PROCEDURE WITHDRAWAL TIME:12minutes ADVERSE EVENTS: There were no complications. IMPRESSIONS: 1. Diverticulum in the sigmoid colon and descending colon 2. A small amount of blood was found in the sigmoid colon 3. Retroflexed views revealed no abnormalities 4. Revealed no abnormalities of the rectum RECOMMENDATIONS: Continue surveillance RECALL: Return 3 years Colonoscopy Russell Rosa MD eSigned: Russell Rosa MD 03/05/2017 1:42 PM cc: PATIENT NAME: Mitzi Kaur MR#: [id number]
[2017-03-05] MEDS ORDERED: SODIUM CHLOR 0.9% 250 ML INJ 250 ML IV ONE (14:00)
[2017-03-05] MEDS ORDERED: FUROSEMIDE 20 MG/2 ML VIAL IV PUSH SCH ×2 (14:00→14:06)
--- NOTE | 2017-03-05 14:04 | HHI.PR ---
Subjective Remarks back from GI lab mild lower abd cramping less bloody stools per RN no n/v no cp no sob family at bsd Objective Objective Results - Vital Signs Date Time Temp Pulse Resp B/P (MAP) Pulse Ox O2 Delivery O2 Flow Rate FiO2 03/05/17 13:45 97.0 82 20 124/65 (84) 99 03/05/17 08:00 98.8 98 17 129/60 (83) 97 03/05/17 04:40 98.2 103 18 125/95 (105) 95 03/04/17 23:45 97.7 91 19 105/55 (72) 97 03/04/17 20:00 98.2 94 18 108/58 (75) 95 03/04/17 16:00 96.7 80 18 117/66 (83) 98 I/O 03/04/17 03/04/17 03/04/17 03/05/17 03/05/17 03/05/17 07:00 15:00 23:00 07:00 15:00 23:00 Intake Total 240 ml 525 ml 1980 ml 480 ml Balance 240 ml 525 ml 1980 ml 480 ml Intake Oral 240 ml 1980 ml 480 ml IV Total 525 ml # Voids 2 9 3 # Bowel Movements 2 5 3 Result Diagram: 03/05/1733 03/05/17 0633 Other Results Laboratory Tests Test 03/04/17 15:15 03/04/17 20:30 03/05/17 06:33 Hemoglobin 8.9 8.6 7.5 Hematocrit 27.4 26.6 23.2 Troponin I LESS THAN 0.02 White Blood Count 7.9 Red Blood Count 2.65 Mean Corpuscular Volume 87.4 Mean Corpuscular Hemoglobin 28.1 Mean Corpuscular Hemoglobin Concent 32.2 Red Cell Distribution Width 14.9 Platelet Count 181 Mean Platelet Volume 9.8 Neutrophils (%) (Auto) 67.2 Lymphocytes (%) (Auto) 24.4 Monocytes (%) (Auto) 6.7 Eosinophils (%) (Auto) 1.0 Basophils (%) (Auto) 0.7 Neutrophils # (Auto) 5.3 Lymphocytes # (Auto) 1.9 Monocytes # (Auto) 0.5 Eosinophils # (Auto) 0.1 Basophils # (Auto) 0.1 CBC Comment DIFF FINAL Differential Comment Blood Urea Nitrogen 12 Creatinine 0.96 Random Glucose 169 Calcium Level 8.4 Sodium Level 142 Potassium Level 3.8 Chloride Level 110 Carbon Dioxide Level 23.9 Anion Gap 8 Estimat Glomerular Filtration Rate 56 ROS General: Fatigue HEENT: No: Sore Throat, Dysphagia Cardiac: No: Chest Pain, Edema, Palpitations Pulmonary: No: Cough, SOB, Wheezing GI: Abdominal Pain /MOLD MAKER: No: Dysuria, Urgency Neuro/MS: Other (right knee pain ) Psych: No: Anxiety, Depression Skin: No: Itching, Rash Physical Exam Physical Exam GENERAL: This is a well-nourished, well-developed patient, in no apparent distress. SKIN: No rashes, ecchymoses or lesions. Cool and dry. HEAD: Atraumatic. Normocephalic. No temporal or scalp tenderness. EYES: Pupils equal round and reactive. Extraocular motions intact. No scleral icterus. No injection or drainage. ENT: Nose without bleeding, purulent drainage or septal hematoma. Throat without erythema, tonsillar hypertrophy or exudate. Uvula midline. Airway patent. NECK: Trachea midline. No JVD or lymphadenopathy. Supple, nontender, no meningeal signs. CARDIOVASCULAR: Regular rate and rhythm without murmurs, gallops, or rubs. RESPIRATORY: Clear to auscultation. Breath sounds equal bilaterally. No wheezes , rales, or rhonchi. GASTROINTESTINAL: Abdomen soft, non-tender, nondistended. No hepato-splenomegaly , or palpable masses. No guarding. MUSCULOSKELETAL: Right knee incision intact, mild right leg swelling. No other joint abnormality. Pedal pulses 2+ bilat NEUROLOGICAL: Awake and alert. Cranial nerves II through XII intact. Motor and sensory grossly within normal limits. Five out of 5 muscle strength in all muscle groups. Normal speech. Urinary Catheter: No Vascular Central Line Catheter: No A/P Diagnosis: (1) Rectal bleeding ICD Codes: K62.5 - Hemorrhage of anus and rectum Status: Acute (2) Status post total right knee replacement ICD Codes: Z96.651 - Presence of right artificial knee joint Status: Resolved (3) HTN (hypertension) ICD Codes: I10 - Essential (primary) hypertension Status: Chronic (4) DM (diabetes mellitus) ICD Codes: E11.9 - Type 2 diabetes mellitus without complications Status: Chronic (5) Asthma ICD Codes: J45.909 - Unspecified asthma, uncomplicated Status: Chronic (6) Primary osteoarthritis of right knee ICD Codes: M17.11 - Unilateral primary osteoarthritis, right knee Status: Chronic (7) Renal insufficiency ICD Codes: N28.9 - Disorder of kidney and ureter, unspecified Status: Acute Assessment and Plan 81-year-old elderly white female presented with complaint of rectal bleeding, had recent right total knee and was on aspirin. Rectal bleeding sec to diverticulosis S/P colonoscopy 03/05 -Diverticulum in the sigmoid colon and descending colon 2. A small amount of blood was found in the sigmoid colon 3. Retroflexed views revealed no abnormalities -Hemoglobin 7.5, hematocrit 23.2. We'll give 2 units of packed cells -Appreciate GI input, status post colonoscopy with findings as noted above. -Decrease IV fluids -Continue with clear liquid diet Reported chest pain yesterday, none today -Troponin negative -EKG okay Renal insufficiency -Continue with cautious hydration -Renal function improved Recent right total knee replacement -Continue with physical therapy Type 2 diabetes -Accu-Cheks before meals and at bedtime with insulin therapy as needed Hypertension, stable -Continue with home medications SCDs for DVT prophylaxis Labs in am Adv diet per GI PT eval poss dc tomorrow if HH stable D/W pt and family D/W Dr. Moe D/W RN This patient was seen by myself and Dr. Moe, this note is written on his behalf : Problem Qualifiers (1) DM (diabetes mellitus): Qualified Codes: E11.9 - Type 2 diabetes mellitus without complications (2) Asthma: Qualified Codes: J45.909 - Unspecified asthma, uncomplicated Constance Florian Mar 05, 2017 14:04
[2017-03-05] MEDS ORDERED: PILL SPLITTER OTHER PRN (14:45)
[2017-03-05 16:00] VITALS: BP 130/64; PULSE 99; RESP 17; TEMP 98.6; O2SAT 99
--- NOTE | 2017-03-05 19:53 | EKG ---
Date Performed: 03/04/2017 Time Performed: 16:55:23 PTAGE: 81 years EKG: Sinus rhythm WITH SINUS ARRHYTHMIA POSSIBLE RIGHT VENTRICULAR CONDUCTION DELAY BORDERLINE ECG PREVIOUS TRACING : 01/24/2017 08.24 Compared to the previous tracing rate faster DOCTOR: Andi Gray Interpretating Date/Time 03/05/2017 19:52:21
[2017-03-05 20:35] VITALS: BP 98/52; PULSE 89; RESP 18; TEMP 98.8; O2SAT 95
[2017-03-05 21:41] VITALS: BP 105/47; PULSE 72; RESP 17; TEMP 98.3; O2SAT 98
[2017-03-06 01:10] VITALS: BP 111/57; PULSE 74; RESP 18; TEMP 98.5; O2SAT 92
[2017-03-06 01:59] VITALS: BP 117/74; PULSE 73; RESP 18; TEMP 98.6; O2SAT 98
[2017-03-06] MEDS: MEDIUM DOSE INSULIN NOVOLOG SUPPLEMENTAL SCALE SQ SCH ×3 (03:15→13:44)
[2017-03-06 06:47] LABS: HEMATOCRIT 29.2 % (35.0-46.0); MEAN CELL VOLUME 87.9 FL (80.0-100.0); MEAN CORPUSCULAR HGB CONC 34.1 % (32.0-36.0); PLATELET COUNT 172 TH/MM3 (150-450); RED BLOOD COUNT 3.32 MIL/MM3 (4.00-5.30); RED CELL DISTRIBUTION WIDTH 15.2 % (11.6-17.2); REVIEW FLAG FINAL; WHITE BLOOD COUNT 8.4 TH/MM3 (4.0-11.0)
[2017-03-06 07:05] LABS: BICARBONATE 29.8 MEQ/L (21.0-32.0); POTASSIUM 3.4 MEQ/L (3.5-5.1)
[2017-03-06 08:00] VITALS: BP 132/63; PULSE 76; RESP 16; TEMP 97.6; O2SAT 94
--- NOTE | 2017-03-06 09:54 | HHI.PR ---
Subjective Remarks mild abd pain tolerated clear liquid diet okay didn't sleep much wants to eat no cp no sob no fever Objective Objective Results - Vital Signs Date Time Temp Pulse Resp B/P (MAP) Pulse Ox O2 Delivery O2 Flow Rate FiO2 03/06/17 01:59 98.6 73 18 117/74 98 03/06/17 01:10 98.5 74 18 111/57 (75) 92 03/05/17 21:41 98.3 72 17 105/47 (66) 98 03/05/17 20:35 98.8 89 18 98/52 (67) 95 03/05/17 16:00 98.6 99 17 130/64 (86) 99 03/05/17 13:45 97.0 82 20 124/65 (84) 99 I/O 03/05/17 03/05/17 03/05/17 03/06/17 03/06/17 03/06/17 07:00 15:00 23:00 07:00 15:00 23:00 Intake Total 480 ml 0 ml 250 ml 1440 ml Balance 480 ml 0 ml 250 ml 1440 ml Intake Oral 480 ml 0 ml 240 ml 480 ml IV Total 450 ml Packed Cells 500 ml Blood Product IV Normal Saline Flush 10 ml 10 ml # Voids 3 3 1 4 # Bowel Movements 3 1 0 0 Result Diagram: 03/06/17 0613 03/06/17 0413 Other Results Laboratory Tests Test 03/06/17 04:13 03/06/17 06:13 Blood Urea Nitrogen 9 Creatinine 1.04 Random Glucose 139 Calcium Level 8.6 Sodium Level 142 Potassium Level 3.4 Chloride Level 104 Carbon Dioxide Level 29.8 Anion Gap 8 Estimat Glomerular Filtration Rate 51 White Blood Count 8.4 Red Blood Count 3.32 Hemoglobin 10.0 Hematocrit 29.2 Mean Corpuscular Volume 87.9 Mean Corpuscular Hemoglobin 30.0 Mean Corpuscular Hemoglobin Concent 34.1 Red Cell Distribution Width 15.2 Platelet Count 172 Mean Platelet Volume 10.0 ROS General: No: Fatigue, Weakness HEENT: No: Sore Throat, Dysphagia Cardiac: No: Chest Pain, Edema, Palpitations Pulmonary: No: Cough, SOB, Wheezing GI: Abdominal Pain (mild ) /STUDENT ASSISTANT: No: Dysuria, Urgency Neuro/MS: No: Lightheaded, Confusion Psych: No: Anxiety, Depression Skin: No: Itching, Rash Physical Exam Physical Exam GENERAL: This is a well-nourished, well-developed patient, in no apparent distress. SKIN: No rashes, ecchymoses or lesions. Cool and dry. HEAD: Atraumatic. Normocephalic. No temporal or scalp tenderness. EYES: Pupils equal round and reactive. Extraocular motions intact. No scleral icterus. No injection or drainage. ENT: Nose without bleeding, purulent drainage or septal hematoma. Throat without erythema, tonsillar hypertrophy or exudate. Uvula midline. Airway patent. NECK: Trachea midline. No JVD or lymphadenopathy. Supple, nontender, no meningeal signs. CARDIOVASCULAR: Regular rate and rhythm without murmurs, gallops, or rubs. RESPIRATORY: Clear to auscultation. Breath sounds equal bilaterally. No wheezes , rales, or rhonchi. GASTROINTESTINAL: Abdomen soft, non-tender, nondistended. No hepato-splenomegaly , or palpable masses. No guarding. MUSCULOSKELETAL: Right knee incision intact, mild right leg swelling. No other joint abnormality. Pedal pulses 2+ bilat NEUROLOGICAL: Awake and alert. Cranial nerves II through XII intact. Motor and sensory grossly within normal limits. Five out of 5 muscle strength in all muscle groups. Normal speech. Urinary Catheter: No Vascular Central Line Catheter: No A/P Diagnosis: (1) Rectal bleeding ICD Codes: K62.5 - Hemorrhage of anus and rectum Status: Acute (2) Status post total right knee replacement ICD Codes: Z96.651 - Presence of right artificial knee joint Status: Resolved (3) HTN (hypertension) ICD Codes: I10 - Essential (primary) hypertension Status: Chronic (4) DM (diabetes mellitus) ICD Codes: E11.9 - Type 2 diabetes mellitus without complications Status: Chronic (5) Asthma ICD Codes: J45.909 - Unspecified asthma, uncomplicated Status: Chronic (6) Primary osteoarthritis of right knee ICD Codes: M17.11 - Unilateral primary osteoarthritis, right knee Status: Chronic (7) Renal insufficiency ICD Codes: N28.9 - Disorder of kidney and ureter, unspecified Status: Acute Assessment and Plan 81-year-old elderly white female presented with complaint of rectal bleeding, had recent right total knee and was on aspirin. Rectal bleeding sec to diverticulosis S/P colonoscopy 03/05 -Diverticulum in the sigmoid colon and descending colon 2. A small amount of blood was found in the sigmoid colon 3. Retroflexed views revealed no abnormalities -Hemoglobin 7.5, hematocrit 23.2. His posterior units of packed cells, hemoglobin up to 10. -Appreciate GI input, status post colonoscopy with findings as noted above. -Stop IV fluids -Advanced to a low residue diet per GI. If she tolerates diet well, she can be discharged this afternoon. Reported chest pain yesterday, none today -Troponin negative -EKG okay Renal insufficiency -Renal function improved Recent right total knee replacement -Continue with physical therapy Type 2 diabetes -Accu-Cheks before meals and at bedtime with insulin therapy as needed Hypertension, stable -Continue with home medications SCDs for DVT prophylaxis PT eval Hemoglobin up to 10, no rectal bleeding, tolerating diet We will see how she tolerates low residue diet, if stable will be discharged this afternoon Needs to follow-up with GI low residue diet Activity as tolerated D/W pt D/W Dr. Moe/Trell [place] D/W RN This patient was seen by myself and Dr. Moe, this note is written on his behalf : Discharge Planning 40 Problem Qualifiers (1) DM (diabetes mellitus): Qualified Codes: E11.9 - Type 2 diabetes mellitus without complications (2) Asthma: Qualified Codes: J45.909 - Unspecified asthma, uncomplicated Constance Florian Mar 06, 2017 09:54
[2017-03-06] MEDS: FUROSEMIDE 20 MG TAB PO SCH (10:08)
[2017-03-06] MEDS: FAMOTIDINE 20 MG TAB PO SCH (10:08)
[2017-03-06] MEDS: ATENOLOL 25 MG TAB PO SCH (10:08)
[2017-03-06] MEDS: SODIUM CHLORIDE 0.9% FLUSH 10 ML FLUSH IV FLUSH SCH (10:16)
[2017-03-06] MEDS ORDERED: POTASSIUM CHLORIDE 25 MEQ EFFERVESCENT TAB PO ONE (11:00)
--- NOTE | 2017-03-06 11:04 | HHI.GIFU ---
Subjective Remarks Had normal color BM, requesting more food, asymptomatic now. Objective Vitals I&O Vital Signs Date Time Temp Pulse Resp B/P (MAP) Pulse Ox O2 Delivery O2 Flow Rate FiO2 03/06/17 01:59 98.6 73 18 117/74 98 03/06/17 01:10 98.5 74 18 111/57 (75) 92 03/05/17 21:41 98.3 72 17 105/47 (66) 98 03/05/17 20:35 98.8 89 18 98/52 (67) 95 03/05/17 16:00 98.6 99 17 130/64 (86) 99 03/05/17 13:45 97.0 82 20 124/65 (84) 99 I/O 03/05/17 03/05/17 03/05/17 03/06/17 03/06/17 03/06/17 06:59 14:59 22:59 06:59 14:59 22:59 Intake Total 480 ml 0 ml 250 ml 1440 ml Balance 480 ml 0 ml 250 ml 1440 ml Intake Oral 480 ml 0 ml 240 ml 480 ml IV Total 450 ml Packed Cells 500 ml Blood Product IV Normal Saline Flush 10 ml 10 ml # Voids 3 3 1 4 # Bowel Movements 3 1 0 0 Laboratory Laboratory Tests Test 03/06/17 04:13 03/06/17 06:13 Blood Urea Nitrogen 9 Creatinine 1.04 Random Glucose 139 Calcium Level 8.6 Sodium Level 142 Potassium Level 3.4 Chloride Level 104 Carbon Dioxide Level 29.8 Anion Gap 8 Estimat Glomerular Filtration Rate 51 White Blood Count 8.4 Red Blood Count 3.32 Hemoglobin 10.0 Hematocrit 29.2 Mean Corpuscular Volume 87.9 Mean Corpuscular Hemoglobin 30.0 Mean Corpuscular Hemoglobin Concent 34.1 Red Cell Distribution Width 15.2 Platelet Count 172 Mean Platelet Volume 10.0 Physical Exam HEENT: Pupils round and reactive to light; normocephalic; atraumatic; no jaundice. Throat is clear. NECK: Neck is supple, no JVD, no lymphadenopathy. CHEST: Chest is clear to auscultation and percussion. CARDIAC: Regular rate and rhythm with no murmur gallop or rubs. ABDOMEN: Soft, nondistended, nontender; no hepatosplenomegaly; bowel sounds are present in all four quadrants. EXTREMITIES: No clubbing, cyanosis, or edema. Assessment and Plan Plan ASSESSMENT - Diverticular bleed. HH stable. - Hx of ASA use PLAN - [facility] - Serial HH - Transfuse if needed - If active re bleeding stat bleed scan - further recs to follow Russell Rosa MD Mar 06, 2017 11:04
--- NOTE | 2017-03-06 11:38 | HHI.GIFU ---
Subjective Remarks Resting in bed. Ordering her lunch tray. No n/v. No abdominal pain. No further GI bleeding. D/W patient colonoscopy findings and avoiding nuts/seeds/ popcorn at home. Objective Vitals I&O Vital Signs Date Time Temp Pulse Resp B/P (MAP) Pulse Ox O2 Delivery O2 Flow Rate FiO2 03/06/17 01:59 98.6 73 18 117/74 98 03/06/17 01:10 98.5 74 18 111/57 (75) 92 03/05/17 21:41 98.3 72 17 105/47 (66) 98 03/05/17 20:35 98.8 89 18 98/52 (67) 95 03/05/17 16:00 98.6 99 17 130/64 (86) 99 03/05/17 13:45 97.0 82 20 124/65 (84) 99 I/O 03/05/17 03/05/17 03/05/17 03/06/17 03/06/17 03/06/17 06:59 14:59 22:59 06:59 14:59 22:59 Intake Total 480 ml 0 ml 250 ml 1440 ml Balance 480 ml 0 ml 250 ml 1440 ml Intake Oral 480 ml 0 ml 240 ml 480 ml IV Total 450 ml Packed Cells 500 ml Blood Product IV Normal Saline Flush 10 ml 10 ml # Voids 3 3 1 4 # Bowel Movements 3 1 0 0 Laboratory Laboratory Tests Test 03/06/17 04:13 03/06/17 06:13 Blood Urea Nitrogen 9 Creatinine 1.04 Random Glucose 139 Calcium Level 8.6 Sodium Level 142 Potassium Level 3.4 Chloride Level 104 Carbon Dioxide Level 29.8 Anion Gap 8 Estimat Glomerular Filtration Rate 51 White Blood Count 8.4 Red Blood Count 3.32 Hemoglobin 10.0 Hematocrit 29.2 Mean Corpuscular Volume 87.9 Mean Corpuscular Hemoglobin 30.0 Mean Corpuscular Hemoglobin Concent 34.1 Red Cell Distribution Width 15.2 Platelet Count 172 Mean Platelet Volume 10.0 Physical Exam HEENT: Normocephalic; atraumatic; no jaundice. CHEST: CTA CARDIAC: RRR ABDOMEN: Soft, nondistended, nontender; no hepatosplenomegaly; bowel sounds are present in all four quadrants. EXTREMITIES: No clubbing, cyanosis, or edema. Neuro: Alert and oriented Assessment and Plan Plan ASSESSMENT - Diverticular bleed. S/P Colonoscopy (03/05/17)-----> 1. Diverticulum in the sigmoid colon and descending colon 2. A small amount of blood was found in the sigmoid colon 3. Retroflexed views revealed no abnormalities 4. Revealed no abnormalities of the rectum. No further bleeding. No n/v/pain. Tolerating liquid diet. HH stable 10.0/29.2. - Anemia, acute blood loss. S/P 2 units PRBC, HH stable 10.0/29.2. - HTN, DM, Asthma, OA per attending. PLAN - Heart healthy diabetic diet, low residue - If patient tolerates lunch, okay to d/c home - No nuts, seeds, popcorn - Return to ER for further bleeding - FU ANDREA 2 weeks - Pt seen and examined by Dr. Rosa and myself and this note is written on his behalf Priscilla Frey Mar 06, 2017 11:38
[2017-03-06 12:00] VITALS: BP 116/69; PULSE 71; RESP 16; TEMP 97.2; O2SAT 95
--- NOTE | 2017-03-08 22:56 | HHI.DS ---
Discharge Summary Admission Date Mar 05, 2017 at 14:03 Discharge Date: Mar 06, 2017 Admitting Diagnosis (1) Rectal bleeding ICD Codes: K62.5 - Hemorrhage of anus and rectum Status: Acute (2) Status post total right knee replacement ICD Codes: Z96.651 - Presence of right artificial knee joint Status: Resolved (3) HTN (hypertension) ICD Codes: I10 - Essential (primary) hypertension Status: Chronic (4) DM (diabetes mellitus) ICD Codes: E11.9 - Type 2 diabetes mellitus without complications Status: Chronic (5) Asthma ICD Codes: J45.909 - Unspecified asthma, uncomplicated Status: Chronic (6) Primary osteoarthritis of right knee ICD Codes: M17.11 - Unilateral primary osteoarthritis, right knee Status: Chronic (7) Renal insufficiency ICD Codes: N28.9 - Disorder of kidney and ureter, unspecified Status: Acute Procedures S/P colonoscopy 03/05 -Diverticulum in the sigmoid colon and descending colon 2. A small amount of blood was found in the sigmoid colon 3. Retroflexed views revealed no abnormalities CBC/BMP: 03/06/17 0613 03/06/17 0413 Significant Findings Laboratory Tests Test 03/06/17 04:13 03/06/17 06:13 Creatinine 1.04 MG/DL (0.50-1.00) Random Glucose 139 MG/DL (74-106) Potassium Level 3.4 MEQ/L (3.5-5.1) Estimat Glomerular Filtration Rate 51 ML/MIN (>89) Red Blood Count 3.32 MIL/MM3 (4.00-5.30) Hemoglobin 10.0 GM/DL (11.6-15.3) Hematocrit 29.2 % (35.0-46.0) Hospital Course This a pleasant 81-year-old elderly white female with significant past medical history diabetes, osteoarthritis, hypertension. Patient had a recent right total knee arthroplasty February 04, 2017. She had an uneventful postoperative course. She went home on aspirin which she finished on Friday. She presented to the emergency room complaining of rectal bleeding that started last night. Indicates that she noted blood on her underpants and by the time she got to the toilet she noticed blood clots in the toilet bowl. She denies any abdominal pain, no nausea, no vomiting, no heartburn. She's had previous upper and lower endoscopies but is unable to recall results. She was actually due to have colonoscopy but it was put on hold as she was scheduled to have surgery. She does have prior history of hemorrhoids. She did not take any other anticoagulation. Denied any alcohol abuse. Did have some problem with constipation after surgery but this has resolved. Appetite has been fair. Denied any recent weight loss. No recent fever, no chills. Had been tolerating physical therapy well and was only using a cane. Patient presented to the emergency room for further evaluation. Initial laboratory workup completed in the emergency room showed H&H that was stable. Mild renal insufficiency. Blood glucose elevated. Abdomen CT noted with diverticulosis, no diverticulitis. Also fatty liver. Patient just went to the bathroom and had another episode of rectal bleeding, a large amount was noted. Prior to this episode, patient endorsed some chest pressure, this happened while she was dozing off. No other symptoms such as shortness of breath, no diaphoresis, no radiation of pain. Denies any history of coronary disease. Indicates that the pain was relieved by belching and she did have Tums. Patient was admitted for further evaluation and treatment. (1) Rectal bleeding (2) Status post total right knee replacement (3) HTN (hypertension) (4) DM (diabetes mellitus) (5) Asthma (6) Primary osteoarthritis of right knee (7) Renal insufficiency Hospitalization course: 81-year-old elderly white female presented with complaint of rectal bleeding, had recent right total knee and was on aspirin. Rectal bleeding sec to diverticulosis Patient was admitted, GI was consulted. Colonoscopy was recommended. Put on IV fluids and clear liquid diet S/P colonoscopy 03/05 -Diverticulum in the sigmoid colon and descending colon 2. A small amount of blood was found in the sigmoid colon 3. Retroflexed views revealed no abnormalities -Hemoglobin 7.5, hematocrit 23.2. Had 2 units of blood, hemoglobin came up to 10 -Advanced to a low residue diet per GI. Tolerated diet well, instructed to avoid nuts and popcorn. Cleared for discharge Reported chest pain -Troponin negative -EKG okay -No further chest pain Renal insufficiency -Renal function improved after IV fluids Recent right total knee replacement -Continued with physical therapy Type 2 diabetes -Accu-Cheks before meals and at bedtime with insulin therapy as needed Hypertension, stable -Continued with home medications SCDs for DVT prophylaxis PT eval Hemoglobin up to 10, no rectal bleeding, tolerated diet Instructed to f/u GI low residue diet Activity as tolerated Pt Condition on Discharge: Stable Discharge Disposition: Disch w/ Home Health Serv Discharge Instructions DIET: Follow Instructions for: Diabetic Diet, High Fiber Diet Fluid Restrictions: none Activities you can perform: Weight Bearing as Bob Follow up Referrals: Gastroenterology - 2 Weeks @ [facility] PCP Follow-up - 1 Week Continued Medications: Atenolol (Atenolol) 25 Mg Tab 25 MG PO DAILY for Blood Pressure Management, #30 TAB Cholecalciferol (Vitamin D3) 50,000 Unit Cap 63551 UNITS PO Q7D for Nutritional Supplement, #30 CAP 0 Refills Furosemide (Furosemide) 20 Mg Tab 20 MG PO DAILY, #30 TAB 0 Refills Hydrocodone-Acetaminophen (Hydrocodone-Acetaminophen) 5-325 mg Tab 1 TAB PO Q6H PRN for PAIN, TAB 0 Refills Insulin NPH Isophane-Reg (Human) 70-30 Inj (Humulin 70-30 Inj) 1,000 Unit/10 Ml Vial 40 UNIT SQ 1900 Multiple Vitamin (Multi Vitamin Daily) 1 Tab Tab 1 TAB PO DAILY Rosuvastatin (Rosuvastatin) 20 Mg Tab 20 MG PO HS for Cholesterol Management, #30 TAB 0 Refills Discontinued Medications: Aspirin DR (Aspirin 81) 81 Mg Tabdr 81 MG PO DAILY, TAB 0 Refills Constance Florian Mar 08, 2017 22:56
== END 2017-03-06 17:25 | disposition home health service (06) | DRG 378 ==
LOC: NEDDLT 04:20 → N06B 04:30 → OBSVTOIN 03-05 14:03
PROVIDERS: ADMIT Specialist; ATTEND Specialist
PROC: 0DJD8ZZ Inspection of Lower Intestinal Tract, Via Natural or Artificial Opening Endoscopic (ICD-10-PCS; 2017-03-05)
PROC: 30233N1 Transfusion of Nonautologous Red Blood Cells into Peripheral Vein, Percutaneous Approach (ICD-10-PCS; principal; 2017-03-05 13:10)
DX: K57.31 Diverticulosis of large intestine without perforation or abscess with bleeding (principal); D62 Acute posthemorrhagic anemia; E11.9 Type 2 diabetes mellitus without complications; K76.0 Fatty (change of) liver, not elsewhere classified; I10 Essential (primary) hypertension; N28.9 Disorder of kidney and ureter, unspecified; Z96.653 Presence of artificial knee joint, bilateral; J45.909 Unspecified asthma, uncomplicated; Z79.4 Long term (current) use of insulin; M17.11 Unilateral primary osteoarthritis, right knee; E78.5 Hyperlipidemia, unspecified
CPT/HCPCS: 36430; 74177; 76937; 80048; 80053; 82948; 84484; 85014; 85018; 85025; 85027; 85610; 85730; 86850; 86900; 86901; 86920; 93005; 96361; 96372; 96374; 96375; C9113; G0378; J1815; J1940; J2250; J2270; J2405; J3010; J7030; P9016; Q9967